=== PATIENT | female | born 1985 | race American Indian/Alaskan Native ===

== ENCOUNTER 2019-09-12 15:25 | Inpatient (IN) | payer OTHER ==
[~2019-09-12] VITALS: Ht 162.6 cm; Wt 80.7 kg
[~2019-09-12 15:25] MED LIST: DICLEGIS DR 101 EACH PO; PRENATAL + DHA1 EAC1 PO
== END 2019-09-24 11:44 | DRG 807 ==
LOC: OB/GYN 09-22 06:43 → LDR 09-22 06:43 → OB/GYN 09-22 11:44 → LDR 09-29 15:21
PROVIDERS: ADMIT Obstetrics & Gynecology
PROC: 10E0XZZ Delivery of Products of Conception, External Approach (ICD-10-PCS; principal; 2019-09-22)
PROC: 0W8NXZZ Division of Female Perineum, External Approach (ICD-10-PCS; 2019-09-22)
PROC: 4A1HXCZ Monitoring of Products of Conception, Cardiac Rate, External Approach (ICD-10-PCS; 2019-09-22)
DX: O80 Encounter for full-term uncomplicated delivery (principal); Z37.0 Single live birth; Z22.330 Carrier of Group B streptococcus; Z3A.39 39 weeks gestation of pregnancy

== ENCOUNTER 2023-01-06 10:21 | Outpatient (CLI) | payer OTHER | END 2023-01-06 10:30 | disposition home or self-care (01) | LOC: RAD 10:21 | DX: M20.11 Hallux valgus (acquired), right foot (principal); M20.12 Hallux valgus (acquired), left foot; M54.59 Other low back pain ==